=== PATIENT | female | born 1980 | race Caucasian/White ===

== ENCOUNTER 2021-03-04 11:30 | Inpatient (IN) | payer BC ==
[~2021-03-04] VITALS: Ht 165.1 cm; Wt 86.6 kg
[2021-03-05] MEDS ORDERED: ECOTRIN81 MG PO (18:42)
[2021-03-05] MEDS ORDERED: PRENATAL CAPLE1 EAC1 PO (18:42)
[2021-03-05] MEDS ORDERED: SYNTHROID75 MCG PO (18:42)
[2021-03-05] MEDS ORDERED: VALTREX1000 MG PO (18:42)
[2021-03-09] MEDS ORDERED: IBUPROFEN600 MG PO (16:04)
[2021-03-09] MEDS ORDERED: CODE1TAB37 PO (16:04)
[2021-03-09] MEDS ORDERED: HYOSCYAMINE0.125 M1 SL (16:10)
== END 2021-03-09 16:50 | disposition home or self-care (01) | DRG 788 ==
LOC: LDR 03-05 11:30 → SURG-SUITE 03-05 17:04
PROVIDERS: ADMIT Obstetrics & Gynecology; ATTEND Obstetrics & Gynecology
PROC: 3E0P7VZ Introduction of Hormone into Female Reproductive, Via Natural or Artificial Opening (ICD-10-PCS; 2021-03-05)
PROC: 4A1HXFZ Monitoring of Products of Conception, Cardiac Rhythm, External Approach (ICD-10-PCS; 2021-03-05)
PROC: 10907ZC Drainage of Amniotic Fluid, Therapeutic from Products of Conception, Via Natural or Artificial Opening (ICD-10-PCS; 2021-03-06)
PROC: 10D00Z1 Extraction of Products of Conception, Low, Open Approach (ICD-10-PCS; principal; 2021-03-06 17:30)
DX: O62.1 Secondary uterine inertia (principal); O24.429 Gestational diabetes mellitus in childbirth, unspecified control; Z3A.40 40 weeks gestation of pregnancy; Z37.0 Single live birth; Z20.822 Contact with and (suspected) exposure to COVID-19